=== PATIENT | female | born 1975 | race Two or more races ===

== ENCOUNTER → 2021-05-09 | Outpatient (CLI) | payer OTHER | END | disposition home or self-care (01) | LOC: LAB 09:38 | PROVIDERS: ATTEND Nurse Practitioner Family | DX: Z20.9 Contact with and (suspected) exposure to unspecified communicable disease (principal) | CPT/HCPCS: 36415; 86706; 86735; 86762; 86765; 86787 ==

== ENCOUNTER → 2021-12-29 | Outpatient (CLI) | payer OTHER | END | disposition home or self-care (01) | LOC: LAB 10:48 | PROVIDERS: ATTEND Nurse Practitioner Family | DX: Z20.9 Contact with and (suspected) exposure to unspecified communicable disease (principal) | CPT/HCPCS: 36415; 86706 ==

== ENCOUNTER 2024-03-14 22:22 | Emergency (ER) | payer OTHER ==
[~2024-03-14] VITALS: Ht 162.6 cm; Wt 83.0 kg
[2024-03-14 22:39] VITALS: BP 149/84; PULSE 101; RESP 16; TEMP 99
[2024-03-14 23:55] LABS: Hepatitis B Surface Antigen Negative (Negative)
[2024-03-14 23:58] LABS: Hepatitis B Surface Antibody Positive (Negative)
[2024-03-15 00:39] VITALS: O2SAT 97
== END 2024-03-15 04:24 | disposition home or self-care (01) ==
LOC: EEVIPCON 22:22 → ER 22:22
DX: S69.92XA Unspecified injury of left wrist, hand and finger(s), initial encounter (principal); W46.0XXA Contact with hypodermic needle, initial encounter; Y93.89 Activity, other specified; Y92.89 Other specified places as the place of occurrence of the external cause; Y99.8 Other external cause status
CPT/HCPCS: 36415; 86703; 86706; 86803; 87340

== ENCOUNTER 2025-11-16 00:28 | Emergency (ER) | payer BC, OTHER ==
[~2025-11-16] VITALS: Ht 162.6 cm; Wt 80.0 kg
[2025-11-16 01:54] LABS: Hematocrit 41.6 % (36.0-46.0); Hemoglobin 14.1 g/dL (12.2-16.2); Mean Corpuscular Hemoglobin 30.4 pg (28.0-32.0); Mean Corpuscular Volume 89.9 fL (80.0-100.0); Nucleated Red Blood Cells % 0.0 %
--- NOTE | 2025-11-16 02:07 | ED.PDOC ---
History of Present Illness HPI Comments 50-year-old, obese female presents with chief complaint of generalized tingling sensations. Patient is a [employer] employee and reports on sudden, unprovoked, and atraumatic onset of symptom, while at work, earlier, this morning. She comments on feeling 'not normal' and checking and noticing her heart rate and systolic blood pressure being in the 140's and 150's range, respectively. No endorsed history of similar events in the past or any pertinent medical, surgical, family, or social history. She denies any chest pain, shortness of breath, weakness, numbness, facial droop, speech or vision changes, or further acute symptoms. ED arrival heart rate and blood pressure of 102 and 145/101, respectively. 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 History Family History Family History: Reviewed,noncontributory to illness Social History Smoker: Non-Smoker Alcohol: Denies ETOH Use Drugs: Denies Drug Use Lives In: Home All Other Systems: Reviewed and Negative (As per HPI) Physical Exam General Appearance: No Apparent Distress, Obese HEENT: Normal ENT Inspection, Pharynx Normal, TMs Normal Neck: Full Range of Motion, Non-Tender, Normal, Normal Inspection Respiratory: Chest Non-Tender, Lungs Clear, No Accessory Muscle Use, No Respiratory Distress, Normal Breath Sounds Cardiovascular: No Edema, No JVD, No Murmur, No Gallop, Normal Peripheral Pulses, Regular Rate/Rhythm Breast Exam: Deferred Gastrointestinal: No Organomegaly, Non Tender, No Pulsatile Mass, Normal Bowel Sounds, Soft Genitalia: Deferred Pelvic: Deferred Rectal: Deferred Extremities: No calf tenderness, Normal capillary refill, Normal inspection, Normal range of motion, Non-tender, No pedal edema Musculoskeletal : Apperance: Normal Neurologic: Alert, asp developer II-XII nml as Tested, No Motor Deficits, Normal Affect, Normal Mood, No Sensory Deficits Cerebellar Function: Normal Reflexes: Normal Skin: Dry, Normal Color, Warm Lymphatic: No Adenopathy Was a procedure done? Was a procedure done?: No Differential Dx Considerations may include: electrolyte imbalance, dehydration, CVA - ischemic vs hemorrhagic, TIA, viral syndrome, idiopathic, arrhythmia, hypertension - accelerated, among others X-Ray, Labs, Meds, VS Vital Signs Date Time Temp Pulse Resp B/P (MAP) Pulse Ox O2 Delivery O2 Flow Rate FiO2 11/16/25 03:00 78 11 120/78 (92) 97 11/16/25 02:40 22 100 Room Air* 0 21 11/16/25 02:40 98.0 66 22 108/75 (86) 100 98.0 11/16/25 00:42 90 11/16/25 00:28 97.7 102 18 145/101 97 97.7 Lab Test 11/16/25 03:39 11/16/25 02:52 11/16/25 01:36 Range/Units Urine Color Colorless Yellow Urine Clarity Clear Clear Urine pH 5.5 5.0-9.0 Urine Specific [place] 1.009 1.001-1.035 Urine Protein Negative Negative Urine Ketones Negative Negative Urine Blood Negative Negative /uL Urine Nitrite Negative Negative Urine Bilirubin Negative Negative Urine Urobilinogen Normal Negative mg/dL Urine Leukocyte Esterase Negative Negative /uL Urine RBC None seen 0 - 4 /hpf Urine Microscopic WBC 1 0-5 /HPF Urine Squamous Epithelial Cells Few <5 /hpf Urine Bacteria None seen None Seen /hpf Urine Glucose Normal Normal mg/dL Troponin I High Sensitivity 20 18 </=34 ng/L White Blood Count 7.3 4.4-10.8 10^3/uL Red Blood Count 4.63 4.0-5.20 10^6/uL Hemoglobin 14.1 12.2-16.2 g/dL Hematocrit 41.6 36.0-46.0 % Mean Corpuscular Volume 89.9 80.0-100.0 fL Mean Corpuscular Hemoglobin 30.4 28.0-32.0 pg Mean Corpuscular Hemoglobin Concent 33.8 32.0-36.0 g/dL Red Cell Distribution Width 13.1 11.8-14.3 % Platelet Count 219 140-450 10^3/uL Mean Platelet Volume 9.0 6.9-10.8 fL Neutrophils (%) (Auto) 69.3 37.0-80.0 % Lymphocytes (%) (Auto) 21.2 10.0-50.0 % Monocytes (%) (Auto) 7.7 0.0-12.0 % Eosinophils (%) (Auto) 1.2 0.0-7.0 % Basophils (%) (Auto) 0.6 0.0-2.0 % Neutrophils # (Auto) 5.0 1.6-8.6 10 ^3/uL Lymphocytes # (Auto) 1.5 0.4-5.4 10 ^3/uL Monocytes # (Auto) 0.6 0-1.3 10 ^3/uL Eosinophils # (Auto) 0.1 0-0.8 10 ^3/uL Basophils # (Auto) 0 0-0.2 10 ^3/uL Nucleated Red Blood Cells 0.0 % Sodium Level 140 136-145 mmol/L Potassium Level 3.8 3.5-5.1 mmol/L Chloride Level 108 H 98-107 mmol/L Carbon Dioxide Level 22 20-31 mmol/L Anion Gap 10 5-15 Blood Urea Nitrogen 7 L 9-23 mg/dL Creatinine 0.61 0.550-1.02 mg/dL Glomerular Filtration Rate Calc 110 >90 mL/min BUN/Creatinine Ratio 11.5 10.0-20.0 Serum Glucose 99 74-106 mg/dL Lactic Acid Level 1.0 0.4-2.0 mmol/L Calcium Level 9.3 8.7-10.4 mg/dL Magnesium Level 2.1 1.6-2.6 mg/dL Total Bilirubin 0.3 0.2-1.0 mg/dL Aspartate Amino Transferase (AST) 22 13-40 U/L Alanine Aminotransferase (ALT) 29 7-40 U/L Alkaline Phosphatase 81 46-116 U/L Total Protein 7.9 5.7-8.2 g/dL Albumin 4.4 3.2-4.8 g/dL Microbiology Date/Time Source Procedure Growth Status 11/16/25 01:37 Blood Blood Culture - Preliminary NO GROWTH AFTER 24 HOURS OF INCUBATION. Resulted 11/16/25 01:36 Blood Blood Culture - Preliminary NO GROWTH AFTER 24 HOURS OF INCUBATION. Resulted Time of 1ST Reevaluation: 01:40 Reevaluation 1ST: Unchanged Patient Education/Counseling: Diagnosis, Treatment, Need For Follow Up Family Education/Counseling: No Family Present SEPSIS Sepsis Screen Date sepsis recognized/suspect: Nov 16, 2025 Time Sepsis recognized/suspect: 0028 Recent Procedure: No On Antibiotic Therapy: No Respiratory Rate >20: No Heart Rate >90: Yes Temp<36 C (96.8 F) or >38.3 C: No SBP <90 or MAP <65 mmHG: No New Acute Mental Status Change: No Is the patient on CPAP, BIPAP,: No Physician Orders Blood Culture (11/16/25 01:09) Vital Signs Date Time Temp Pulse Resp B/P (MAP) Pulse Ox O2 Delivery O2 Flow Rate FiO2 11/16/25 03:00 78 11 120/78 (92) 97 11/16/25 02:40 22 100 Room Air* 0 21 11/16/25 02:40 98.0 66 22 108/75 (86) 100 98.0 11/16/25 00:42 90 11/16/25 00:28 97.7 102 18 145/101 97 97.7 Laboratory Tests Test 11/16/25 01:36 Lactic Acid Level 1.0 mmol/L (0.4-2.0) White Blood Count 7.3 10^3/uL (4.4-10.8) Departure 1 Departure Time of Disposition: 03:00 Impression: Primary Impression: Generalized weakness Additional Impression: Paresthesia Disposition: 01 HOME / SELF CARE / HOMELESS Condition: Stable Discharged With: Self Critical Care Note Critical Care Time?: No Stability Stability form required: No Heart Score Heart Score: Heart Score Response (Comments) Value History N/A 0 EKG N/A 0 Age N/A 0 Risk Factors N/A 0 Troponin N/A 0 Total 0 I personally scribed for DHARMESH SARAVIA MD ([email or web address]) on 11/16/25 at 02:06. Electronically submitted by Eleazar Azar [email or web address]). DHARMESH SARAVIA MD Nov 16, 2025 02:06
[2025-11-16 02:09] LABS: Alanine Aminotransferase 29 U/L (7-40); Albumin 4.4 g/dL (3.2-4.8); Alkaline Phosphatase 81 U/L (46-116); Anion Gap 10 (5-15); BUN/Creatinine Ratio 11.5 (10.0-20.0); Calcium 9.3 mg/dL (8.7-10.4); Carbon Dioxide 22 mmol/L (20-31); Glucose 99 mg/dL (74-106); Magnesium 2.1 mg/dL (1.6-2.6); Potassium 3.8 mmol/L (3.5-5.1); Sodium 140 mmol/L (136-145); Total Protein 7.9 g/dL (5.7-8.2)
[2025-11-16 02:10] LABS: Bilirubin, Total 0.3 mg/dL (0.2-1.0); Blood Urea Nitrogen 7 mg/dL (9-23); Chloride 108 mmol/L (98-107)
[2025-11-16 02:40] VITALS: RESP 22; TEMP 98; O2SAT 100
[2025-11-16] MEDS: SODIUM CHLORIDE 0.9% 500 ML IV ONE (02:48)
[2025-11-16 03:00] VITALS: BP 120/78; PULSE 78; RESP 11; O2SAT 97
[2025-11-16 04:12] LABS: Urine Protein, UAD Negative (Negative)
--- NOTE | 2025-11-16 20:27 | ECG ---
[facility] Test Date: 2025-11-16 Test Time: 00:42:23 Pat Name: NINA SALAS Department: Room: Gender: F [employer]: CAROLYN : 1975 Requested By: EMERGENCY EMERGENCY Order Number: [id number] Reading MD: Wolf Castañeda Measurements Intervals [place] Rate: 90 P: 43 VA: 151 QRS: 14 QRSD: 77 T: 20 QT: 360 QTc: 441 Interpretive Statements Sinus rhythm Electronically Signed On 11-18-2025 16:32:26 PST by Wolf Castañeda Please click the below link to view image of tracing.
== END 2025-11-16 05:58 | disposition home or self-care (01) ==
LOC: EEVIPCON 00:28 → ER 00:28
DX: R53.1 Weakness (principal); R20.2 Paresthesia of skin
CPT/HCPCS: 36415; 80053; 81001; 83605; 83735; 84484; 85025; 87040; 93005; 96360; 99284; J7040